=== PATIENT | male | born 1950 | race Caucasian/White ===

== ENCOUNTER 2016-06-08 07:19 | Day surgery (SDC) | payer MEDICARE ==
[~2016-06-08] VITALS: Ht 175.3 cm; Wt 54.5 kg
[2016-06-08 07:45] VITALS: BP 114/90; PULSE 95; RESP 20; TEMP 95.9; O2SAT 94
[2016-06-08] MEDS ORDERED: ceFAZolin 2 GM PREMIX 50 ML - implanted port/tunneled catheter insertion IV SCH (08:00)
[2016-06-08] MEDS ORDERED: POVIDONE IODINE 5% (ANTISEPSIS KIT) 4 APPLICATIONS EACH NARE SCH (08:00)
[2016-06-08] MEDS ORDERED: CHLORHEXIDINE GLUCONATE 2 % 1 PACK (2 CLOTHS) TOPICAL SCH (08:00)
[2016-06-08] MEDS ORDERED: MUPIROCIN 2% OINT 1 APPLIC/GM SYR EACH NARE SCH (08:00)
[2016-06-08] MEDS ORDERED: HYDR1SOL3 PO (08:07)
[2016-06-08] MEDS ORDERED: LIDO1SOL8 SWISH-SWAL (08:08)
[2016-06-08] MEDS ORDERED: ALPR.5 PO (08:09)
[2016-06-08] MEDS ORDERED: FENT25DI T-DERMAL (08:10)
[2016-06-08] MEDS: VANCOMYCIN 1000 MG/NS 250 ML - implanted port/tunneled catheter IV SCH ×4 (08:12→09:51)
[2016-06-08] MEDS ORDERED: SODIUM CHLOR 0.9% 1000 ML INJ 1,000 ML IV SCH (09:15)
[2016-06-08] MEDS ORDERED: LIDOCAINE 1%/EPINEPHrine 1:100,000 SOLN 20 ML VIAL ONE (09:25)
[2016-06-08] MEDS ORDERED: fentaNYL CITRATE 250 MCG/5 ML AMP ONE (09:45)
[2016-06-08] MEDS ORDERED: MIDAZOLAM HCL 5 MG/5 ML VIAL ONE (09:45)
[2016-06-08 10:32] VITALS: BP 125/88; PULSE 98; RESP 19; TEMP 97.2; O2SAT 93
--- NOTE | 2016-06-08 10:34 | PD.RAD ---
Post Procedure Progress Note Pre Procedure Diagnosis: (1) Oropharyngeal cancer Post Procedure Diagnosis: (1) Oropharyngeal cancer Procedure Date: Jun 08, 2016 Supervising Radiologist: Choco Coker Proceduralist/Assist: Lorna Newton, RT(R)(CV), Sandra Marcelino RT(R)() Anesthesia: Local, Conscious Sedation Plan of Activity Patient to Unit: ROPU Patient Condition: Fair See PACS Report for procedural detail/treatment Central Venous Access Device Procedure 1 Right Internal Jugular Infusaport Placement single lumen Tamazight: 8 Choco Coker MD Jun 08, 2016 10:34
[2016-06-08 10:47] VITALS: BP 130/72; PULSE 82; RESP 18; O2SAT 92
[2016-06-08 11:17] VITALS: BP 105/63; PULSE 90; RESP 19; O2SAT 93
[2016-06-08 11:47] VITALS: BP 115/67; PULSE 87; RESP 18; O2SAT 94
--- NOTE | 2016-06-08 12:50 | RADRPT ---
EXAM DATE/TIME: 06/08/2016 09:29 [facility] COMPARISON: No previous studies available for comparison. INDICATIONS : Patient with history of oropharygeal cancer in need of port placement. MEDICAL HISTORY : 1.HTN 2.Hypercholesterolemia 3.Depression 4.Left laryngeal cancer 2004 5.Oropharygeal cancer SURGICAL HISTORY : 1.Tonsillectomy 2.Appendectomy 3.Upper endoscopy 4.Vasectomy 5.Left Hemilaryngectomy in 2004 ENCOUNTER: Initial ACUITY: >1 year PAIN SCORE: 7/10 LOCATION: Ears and throat FLUORO TIME: 0.7 minutes IMAGE SERIES: 2 SEDATION TIME: 15 ACCESS: Right internal jugular vein SEDATION: 1.) 3 mg midazolam (Versed) IV 2.) 150 mcg fentanyl (Sublimaze) IV Prophylactic antibiotics were administered with appropriate pre-procedure timing. Vancomycin within 2 hours of procedure, Ancef (or alternative) within 1 hour of procedure. DEVICE: 1. 8 Sinhala single lumen Bard Power Port PROCEDURE : 1. Continuous pulse oximetry and EKG monitoring. 2. Intravenous conscious sedation. 3. Ultrasound guidance for venous access. 4. Fluoroscopic guided implantable central venous port placement. The patient was placed supine. The neck was prepped in sterile fashion. Full sterile technique was u sed, including cap, mask, sterile gloves and gown, and a large sterile sheet. Hand hygiene and 2% ch lorhexidine Betadine was utilized per protocol for cutaneous antisepsis with appropriate dry time for site. The skin and subcutaneous tissues were infiltrated with local anesthetic solution. Under direct ultrasound guidance, central venous access was accomplished in the targeted vessel. The ultrasound images depicting access guidance were stored and saved to PACS for permanent record. A s ubcutaneous pocket was created using blunt dissection. The port was introduced to the pocket. The c atheter tubing was fed through a subcutaneous tunnel to the venotomy site. The catheter tubing was c ut to a suitable length and then was introduced through a valved Peel-Away sheath and positioned with catheter tubing tip at the cavo-atrial junction level. The pocket incision was closed with subcutic ular Vicryl suture. Steri-Strips were applied. The port was flushed and locked with heparin solutio n per protocol. Sterile dressing was applied to the site. The patient tolerated the procedure well. Conscious sedation was performed with the prescribed dosages and duration as above in the presence of an independent trained radiology nurse to assist in the monitoring of the patient. EKG and oximetry remained stable throughout the procedure. The patient tolerated the procedure well and there were no complications. The patient was sent to post anesthesia recovery in stable condition. CONCLUSION: Uncomplicated ultrasound and fluoroscopic guided implanted central venous port catheter placement as described in detail above. An 8 Sinhala Power port was placed. Choco Coker MD on June 08, 2016 at 12:48 Board Certified Radiologist. This report was verified electronically.
== END 2016-06-08 12:35 | disposition home or self-care (01) ==
LOC: HROP 07:19 → HRIP 07:21 → HROP 12:35
PROVIDERS: ATTEND Internal Medicine Hematology & Oncology
DX: Z45.2 Encounter for adjustment and management of vascular access device (principal); C10.9 Malignant neoplasm of oropharynx, unspecified; I10 Essential (primary) hypertension; E78.00 Pure hypercholesterolemia, unspecified; F32.9 Major depressive disorder, single episode, unspecified; Z85.21 Personal history of malignant neoplasm of larynx
CPT/HCPCS: 36561; 76937; 77001; 99152; C1788; J0690; J1642; J2250; J3010; J3370; J7030; J7050

== ENCOUNTER 2016-06-12 06:39 | Day surgery (SDC) | payer MEDICARE ==
[~2016-06-12] VITALS: Ht 175.3 cm; Wt 56.8 kg
[~2016-06-12 06:39] MED LIST: ALPR.5 PO; FENT25DI T-DERMAL; HYDR1SOL3 PO; LIDO1SOL8 SWISH-SWAL
[2016-06-12 06:57] VITALS: BP 121/81; PULSE 100; RESP 20; TEMP 97.4; O2SAT 98
[2016-06-12] MEDS ORDERED: MIDAZOLAM HCL 2 MG/2 ML VIAL ONE ×2 (08:28→09:13)
[2016-06-12] MEDS ORDERED: GLUCAGON 1 MG/ML VIAL ONE (08:28)
[2016-06-12] MEDS ORDERED: ceFAZolin 2 GM PREMIX 50 ML ONE (08:28)
--- NOTE | 2016-06-12 09:45 | PD.RAD ---
Post Procedure Progress Note Pre Procedure Diagnosis: (1) Oropharyngeal cancer Post Procedure Diagnosis: (1) Oropharyngeal cancer Procedure Date: Jun 12, 2016 Supervising Radiologist: Choco Coker Proceduralist/Assist: Jill Mayen, RT(R), Sandra Marcelino RT(R)() Anesthesia: Local, Conscious Sedation Plan of Activity Patient to Unit: ROPU Patient Condition: Fair See PACS Report for procedural detail/treatment Feeding Tube Gastrostomy Placement Faroese: 18 Choco Coker MD Jun 12, 2016 09:44
[2016-06-12] MEDS ORDERED: IOHEXOL 350 MG/ML 50 ML BTL (for Cath Lab) G-TUBE ONE (09:52)
[2016-06-12 10:00] VITALS: BP 139/80; PULSE 86; RESP 20; TEMP 97.9; O2SAT 92
[2016-06-12 10:15] VITALS: BP 150/96; PULSE 86; RESP 20; O2SAT 95
[2016-06-12 10:45] VITALS: BP 127/95; PULSE 85; RESP 20; O2SAT 97
[2016-06-12 11:15] VITALS: BP 129/80; PULSE 95; RESP 20; O2SAT 97
[2016-06-12 11:45] VITALS: BP 142/87; PULSE 85; RESP 20; O2SAT 97
--- NOTE | 2016-06-16 09:28 | RADRPT ---
EXAM DATE/TIME: 06/12/2016 08:54 [facility] COMPARISON: No previous studies available for comparison. INDICATIONS : Patient with a history of oropharygeal cancer. MEDICAL HISTORY : HTN Hypercholesterolemia Depression Left laryngeal CA Oropharyngeal CA SURGICAL HISTORY : Tonsillectomy Appendectomy Upper endoscopy Vasectomy Left hemilaryngectomy ENCOUNTER: Subsequent ACUITY: > 1 year PAIN SCORE: 8/10 LOCATION: Ears and throat FLUORO TIME: 2.2 minutes IMAGE SERIES: 1 SEDATION TIME: 30 minutes CONTRAST: 20 cc Omnipaque (iohexol) 350 MEDICATION(S): 1.) 2 mg midazolam (Versed) IV 2.) 100 mcg Fentanyl (Sublimaze) IV 3.) 1 mg glucagon (Gluca-Gen) IV DEVICE(S): 1.) 18 Fr gastrostomy tube PROCEDURE : 1. Limited abdominal ultrasound. 2. Fluoroscopically guided gastrostomy tube placement. 3. Conscious sedation with continuous EKG and oximetry monitoring. The risks, benefits and alternatives to the procedure were explained and verbal and written consent w as obtained. The site was prepped in sterile fashion. Full sterile technique was used, including ca p, mask, sterile gloves and gown and a large sterile sheet. Hand hygiene and 2% chlorhexidine and/or betadine/alcohol prep was utilized per protocol for cutaneous antisepsis. The skin and subcutaneous tissues were infiltrated with local anesthetic solution. Ultrasound was used to christian the position of the liver. The stomach was insufflated with room air. Th ree percutaneous fasteners were placed to secure the anterior gastric wall. A small incision was made between the fasteners. The stomach was accessed with an 18 gauge needle. A n 0.035 wire was advanced into the small bowel. The tract was dilated. The gastrostomy tube was int roduced through a peel-away sheath. The position was confirmed with an injection of contrast. Conscious sedation was performed with the prescribed dosages and duration as above in the presence of an independent trained radiology nurse to assist in the monitoring of the patient. EKG and oximetry remained stable throughout the procedure. The patient tolerated the procedure well and there were n o complications. The patient was sent to post anesthesia recovery in stable condition. CONCLUSION: Uncomplicated gastrostomy tube placement as above. Choco Coker MD on June 16, 2016 at 9:25 Board Certified Radiologist. This report was verified electronically.
== END 2016-06-12 12:30 | disposition home or self-care (01) ==
LOC: HROP 06:39 → HRIP 06:39 → HROP 12:30
PROVIDERS: ATTEND Internal Medicine Hematology & Oncology
DX: C10.9 Malignant neoplasm of oropharynx, unspecified (principal); I10 Essential (primary) hypertension; E78.00 Pure hypercholesterolemia, unspecified; F32.9 Major depressive disorder, single episode, unspecified
CPT/HCPCS: 49440; 76942; 99152; 99153; C1769; C1887; J0690; J1610; J1642; J2250; J3010; Q9967